=== PATIENT | female | born 1955 | race Caucasian/White ===

== ENCOUNTER → 2018-02-18 | Day surgery (SDC) | payer OTHER ==
[~2018-02-18] MED LIST: BREO INH; CRANBERRY450 M1 PO; FENTANYL CITRATE/PF 100MCG/2 ML INJ ONE; KEFLEX500 MG PO; LIDOCAINE HCL 2% LOCAL INJ 5 ML SDV VIAL INJ ONE; METOPROLOL SUCC25 MG PO; MIDAZOLAM HCL 2 MG/2 ML VIAL ONE; PANTOPRAZOLE SO40 MG PO; PAROXETINE HCL20 MG PO; PROPOFOL IV EMULSION 10 MG/ML 50 ML VIAL ONE; TYLENOL WITH C1 EACH PO; VITAMIN D31000 UNI1 PO
--- OUTSIDE RECORDS SUMMARY | 2018-02-18 07:57 | XMS REPORT | Encounter Summary ---
Author Organization Unknown Address [address] [place] [address] Phone [phone] Reason for Visit Medical Complaint Instructions 1. Allergic rhinitis rapid strep group A, throat allergies: care instructions Xyzal 5 mg tablet fluticasone 50 mcg/actuation nasal spray,suspension Discussion Note: None recorded. Plan of Care Patient Instructions Try warm salt water gargles, throat lozanges, soups ortea with honey and/or lemon juice to soothe the throat.Take ibuprofen or tylenolevery 6 hours for fever, pain and/or swelling of throat. Please seek care (PCP, Urgent Care, ER) or return to [facility] if symptoms get worse or do not resolve in 3 to 4 days or if you notice any signs of infection including fever,redness, tenderness or yellow discharge or onset of shortness of breath, lips or tounge swelling. Please read all the side effects of the medications, if you develop any side effects, immediately stop the medication and please contact your PCP/UC/ER or [facility] or call 911. Patient verbalizes understanding and agrees to the plan. Reminders Provider Appointments None recorded. Lab Rapid Strep Group a, Throat 11/15/2015 [facility] Referral None recorded. Procedures None recorded. Surgeries None recorded. Imaging None recorded. Medications Name Start Date amoxicillin 875 mg-potassium clavulanate 125 mg tablet azithromycin 500 mg tablet fluticasone 50 mcg/actuation nasal spray,suspension INHALE 2 SPRAYS INTO EACH NOSTRIL EVERY DAY levocetirizine 5 mg tablet TAKE 1 TABLET BY MOUTH EVERY DAY paroxetine 10 mg tablet Medications Administered None recorded. Vitals Height Weight BMI Blood Pressure 5 ft 5.5 in 183 lbs 30 110/70 Lab Results Date Name Result Description Value Range Status Rapid Strep Group a, Throat Result negative Swab Location Left and Right tonsillar pillars Allergies Name Reaction Severity Onset NKDA Problems Name Status Onset Date Source Streptococcal Sore Throat Active Encounter Acute Maxillary Sinusitis Active Encounter Sore Throat Symptom Active Encounter Laryngitis Active Encounter Upper Respiratory Infection Active Encounter Allergic Rhinitis Active Encounter Procedures Date Name Performed by Hysterectomy Information not available Vaccine List Vaccine Type influenza, seasonal, injectable 12/21/2014 Social History Smoking Status Never Smoker Past Encounters 11/15/2015 Allergic Rhinitis Gin Ortiz ANNE: [address] [facility], [place] [address], Ph. History of Present Illness Azbib-Rtqnnsoyyd-Vetpkmm Reported By: Patient HPI: Location: throat. Quality: sore throat, nasal/sinus congestion. Duration: 2days. Severity: mild, moderate. Onset/Timing: sudden. Context: no sick contacts, no foreign travel, non-smoker, allergies. Modifying factors: OTC medication. Associated Symptoms: no sputum production, no shortness of breath, no wheezing, no change in number of pillows needed to sleep at night, no sweats, no significant weight gain, no significant weight loss, no morning cough, no vomiting, no diarrhea, no rash, no nausea, sore throat Notes: Pt also reports scratchy throat, itchy ears and nose. Review of Systems Basic Reported By: Patient Constitutional: Constitutional: no fever Eyes: Eyes: no eye complaints Lxap-Znyr-Ashwq-Throat: Ears: no ear complaints. Nose: nose/sinus problems. Mouth/Throat: no bleeding gums, no mouth complaints, no teeth problems, sore throat Cardiovascular: Cardiovascular: no chest pain, no shortness of breath, no known heart murmur Respiratory: Respiratory: no cough, no wheezing, no shortness of breath Gastrointestinal: Gastrointestinal: no abdominal pain, no vomiting / diarrhea Genitourinary: Genitourinary: no urinary complaints, no discharge Musculoskeletal: Musculoskeletal: no muscle aches, no muscle weakness, no arthralgias/joint pain, no back pain Skin: Skin: no abnormal / changing mole, no jaundice, no rashes Neurologic: Neurologic: no loss of consciousness, no weakness, no numbness, no seizures, no dizziness, no headaches Physical Exam Adult Basic, Adult Female Complete Constitutional: General Appearance: healthy-appearing, well-nourished, well-developed. Level of Distress: NAD. Ambulation: ambulating normally Psychiatric: Mental Status: active and alert. Orientation: to time, to place, to person Eyes: Lids and Conjunctivae: non-injected, no discharge, no pallor. Pupils: PERRLA. EOM: EOMI. Lens: clear. Sclerae: non-icteric Gwe-Qywa-Hxmvc-Throat: Ears: no lesions on external ear, no outer ear tenderness, EACs clear, TMs clear. Hearing: no hearing loss. Nose: no lesions on external nose, nares patent, no septal deviation, nasal passages clear, no sinus tenderness, nasal discharge--rhinorrhea, post nasal drip; pale swollen nasal mucosa. Lips, Teeth, and Gums: no mouth or lip ulcers. Oropharynx: moist mucous membranes, no exudates, tonsils not enlarged, erythema Neck: Neck: supple. Lymph Nodes: no cervical LAD Lungs: Respiratory effort: no dyspnea, no tachypnea. Auscultation: breath sounds normal Cardiovascular: Heart Auscultation: RRR, no murmurs Neurologic: Gait and Station: normal gait Skin: Inspection and palpation: no rash
--- OUTSIDE RECORDS SUMMARY | 2018-02-18 07:57 | XMS REPORT | Encounter Summary ---
Author Organization Unknown Address [address] [place] [address] Phone [phone] Reason for Visit Medical Complaint Instructions 1. Pain in throat sore throat: care instructions levocetirizine 5 mg tablet rapid strep group A, throat Discussion Note: None recorded. Plan of Care Patient Instructions take medication as directed. follow up pcp Reminders Provider Appointments None recorded. Lab Rapid Strep Group a, Throat 03/01/2017 [facility] Referral None recorded. Procedures None recorded. Surgeries None recorded. Imaging None recorded. Medications Name Start Date Breo Ellipta 100 mcg-25 mcg/dose powder for inhalation levocetirizine 5 mg tablet Take 1 tablet every day by oral route for 30 days. metoprolol tartrate 25 mg tablet paroxetine 10 mg tablet Medications Administered None recorded. Vitals Height Weight BMI Blood Pressure 5 ft 5.5 in 190 lbs 31.1 kg/m2 120/80 mm[Hg] Lab Results Date Name Specimen Result Interpretation Description Value Range Status Address Rapid Strep Group a, Throat Result negative [facility]: [address] [place] [address] Swab Location Left and Right tonsillar pillars [facility]: [address] [place] [address] Allergies Code Code System Name Reaction Severity Status Onset NKDA Problems Name Status Onset Date Source Streptococcal Sore Throat Active Encounter Acute Maxillary Sinusitis Active Encounter Sore Throat Symptom Active Encounter Laryngitis Active Encounter Upper Respiratory Infection Active Encounter Allergic Rhinitis Active Encounter Procedures Date Name Performed by Hysterectomy Information not available Vaccine List Vaccine Type influenza, injectable, quadrivalent 10/22/2016 influenza, seasonal, injectable 12/22/2014 pneumococcal polysaccharide PPV23 11/22/2016 Social History Smoking Status Never Smoker Past Encounters 03/01/2017 Pain in Throat ZOEY Aguilar: [address] [place] [address], Ph. History of Present Illness Throat-Oral Complaint Reported By: Patient HPI: Location: throat. Quality: sore throat. Severity: mild, moderate. Duration: 1 days. Onset/Timing: gradual. Context: no foreign travel, non-smoker, sick contact. Modifying factors: OTC medication. Associated Symptoms: no fever, no headache, no body aches, no sputum production, no shortness of breath, no wheezing, no change in number of pillows needed to sleep at night, no sweats, no significant weight gain, no significant weight loss, no morning cough, no vomiting, no diarrhea, no rash, no nausea, sore throat Review of Systems:ROS as noted in the HPI Review of Systems Basic Reported By: Patient Physical Exam Adult Basic, Adult Female Complete Reported By: Patient Constitutional: General Appearance: healthy-appearing, well-nourished, well-developed. Level of Distress: NAD. Ambulation: ambulating normally Psychiatric: Mental Status: active and alert Eyes: Lids and Conjunctivae: non-injected, no discharge Qdr-Dilt-Iwdwx-Throat: Ears: no lesions on external ear, no outer ear tenderness, EACs clear, TMs clear. Hearing: no hearing loss. Nose: no lesions on external nose, nares patent, no septal deviation, nasal passages clear, no sinus tenderness, no nasal discharge. Lips, Teeth, and Gums: no mouth or lip ulcers. Oropharynx: moist mucous membranes, no erythema, no exudates, tonsils not enlarged Neck: Neck: trachea midline. Lymph Nodes: no cervical LAD Lungs: Respiratory effort: no dyspnea, no tachypnea, no use of accessory muscles, no intercostal retractions. Auscultation: breath sounds normal Cardiovascular: Heart Auscultation: RRR, no murmurs
--- OUTSIDE RECORDS SUMMARY | 2018-02-18 07:57 | XMS REPORT | Continuity of Care Document ---
Author Author Maurilio emmanuel [facility] Interface Address Unknown Phone Unavailable Problems Problem Status Onset Date Classification Date Reported Comments Source Pain in throat 03/01/2017 Diagnosis 03/01/2017 [facility] Allergic rhinitis 11/15/2015 Diagnosis 11/15/2015 [facility] Streptococcal Sore Throat Problem 03/01/2017 [facility] Acute Maxillary Sinusitis Problem 03/01/2017 [facility] Sore Throat Symptom Problem 03/01/2017 [facility] Laryngitis Problem 03/01/2017 [facility] Upper Respiratory Infection Problem 03/01/2017 [facility] Allergic Rhinitis Problem 03/01/2017 [facility] Medications Medication Details Route Status Patient Instructions Ordering Provider Order Date Source fluticasone furoate 0.1 MG/ACTUAT / vilanterol 0.025 MG/ACTUAT Dry Powder Inhaler Breo Ellipta 100 mcg-25 mcg/dose powder for inhalation Active [facility] levocetirizine dihydrochloride 5 MG Oral Tablet levocetirizine 5 mg tablet Take 1 tablet every day by oral route for 30 days. Active [facility] Metoprolol Tartrate 25 MG Oral Tablet metoprolol tartrate 25 mg tablet Active [facility] Paroxetine Hydrochloride 10 MG Oral Tablet paroxetine 10 mg tablet Active [facility] Amoxicillin 875 MG / Clavulanate 125 MG Oral Tablet amoxicillin 875 mg-potassium clavulanate 125 mg tablet Active [facility] Azithromycin 500 MG Oral Tablet azithromycin 500 mg tablet Active [facility] Fluticasone propionate 0.05 MG/ACTUAT Metered Dose Nasal [place] fluticasone 50 mcg/actuation nasal spray,suspension INHALE 2 SPRAYS INTO EACH NOSTRIL EVERY DAY Active [facility] Allergies, Adverse Reactions, Alerts Substance Category Reaction Severity Reaction type Status Date Reported Comments Source Immunizations Immunization Date Given Site Status Last Updated Comments Source pneumococcal polysaccharide PPV23 11/22/2016 completed [facility] influenza, injectable, quadrivalent 10/22/2016 completed [facility] influenza, seasonal, injectable 12/22/2014 completed [facility] Results Order Name Results Value Reference Range Date Interpretation Comments Source RESULT negative 03/01/2017 [facility] SWAB LOCATION Left and Right tonsillar pillars 03/01/2017 [facility] RESULT negative 11/15/2015 [facility] SWAB LOCATION Left and Right tonsillar pillars 11/15/2015 [facility] Vital Signs Vital Sign Value Date Comments Source Diastolic (mm Hg) 80 03/01/2017 [facility] Height 65.5 03/01/2017 [facility] Systolic (mm Hg) 120 03/01/2017 [facility] Weight 190 03/01/2017 [facility] Diastolic (mm Hg) 70 11/15/2015 [facility] Height 65.5 11/15/2015 [facility] Systolic (mm Hg) 110 11/15/2015 [facility] Weight 183 11/15/2015 [facility] Encounters Location Location Details Encounter Type Encounter Number Reason For Visit Attending Provider ADM Date DC Date Status Source [place] - [id number] HEATHER WadeP: [address] [place] [address], Ph. [id number] Gin Ortiz 11/15/2015 [facility] [place] [id number] Srivastava, [employer] SPECIALIST-C: [address] [place] [address], Ph. [id number] Lb Srivastava 03/01/2017 [facility] Procedures Procedure Code Date Perfomer Comments Source Hysterectomy [facility]
[2018-02-18 12:42] VITALS: BP 148/84
--- NOTE | 2018-02-18 15:06 | Operative Report ---
DATE OF PROCEDURE: February 18, 2018 REFERRING PHYSICIAN: Dr. Alex Anaya PROCEDURES PERFORMED 1. Esophagogastroduodenoscopy and biopsy. 2. Colonoscopy with polypectomy. INDICATIONS FOR EGD: History of heartburn and epigastric pain. INDICATIONS FOR COLONOSCOPY: Surveillance colonoscopy and personal history of colon polyps. MEDICATION: Patient was done under MAC. Please see anesthesiologist's note. PROCEDURE: With the patient in the left lateral decubitus position, the flexible fiberoptic Olympus gastroscope was introduced into the esophagus under direct visualization without any difficulty. There was some patchy erythema noted in the distal esophagus. A minute tongue of velvety red mucosa was noted to extend proximally from the GE junction. That was biopsied to rule out Patton's. The scope was then advanced with ease into the stomach, and mucosa overlying the antrum and the body revealed some patchy intense erythema and moderate edema, and biopsies were obtained and sent to stain for H. pylori. Two ulcers were noted in the antrum with the largest approximately 6 mm in diameter with heaped up margins without active bleeding or stigmata of recent hemorrhage. Biopsies were obtained. The scope was then advanced with ease all the way to the 2nd portion of the duodenum. The scope was then withdrawn slowly. Mucosa overlying the proximal 2nd portion and the duodenal bulb appeared to be within normal limits. The scope was then withdrawn back into the stomach and retroflexed. Mucosa overlying the fundus and the cardia appeared to be within normal limits. The scope was then straightened out. It was subsequently withdrawn. Patient tolerated the procedure well. IMPRESSION 1. Distal esophagitis, mild. 2. Rule out Patton's esophagus. 3. Gastric ulcers, antrum, up to 6 mm in size with heaped up margins. Biopsies obtained. PLAN: Follow up histology. Initiate Protonix 40 mg 1 p.o. q.a.m. a.c. Patient was then turned around. After adequate lubrication of the anal canal, a flexible fiberoptic Olympus colonoscope was inserted into the rectum with ease and advanced all the way to the cecum. It was then withdrawn slowly. The mucosa overlying the cecum appeared to be within normal limits. There was a prominent fold noted in the approximately the midaspect of the ascending colon that was hot biopsied. The rest of the ascending appeared to be within normal limits. A minute polyp was hot biopsied from the transverse colon. The descending and the sigmoid appeared to be within normal limits. An approximately 2 cm sessile mass was noted in the distal rectum and that was partially resected per piecemeal electrocautery. The scope was retroflexed into the distal rectum and small internal hemorrhoids were noted, none of which was actively bleeding. The scope was then straightened out. It was subsequently withdrawn. Patient tolerated the procedure well. IMPRESSION 1. Prominent fold in the mid-ascending colon, hot biopsied. 2. Minute polyp, transverse colon, hot biopsied. 3. Rectal polypoid mass approximately 2 cm in size partially resected per piecemeal electrocautery. 4. Internal hemorrhoids, none actively bleeding. PLAN: Follow up histology. Initiate high-fiber and low-fat diet. Initiate high-fiber supplement. Will refer to Dr. Martinez Olvera for transanal excision of residual mass. Job#: [id number] RI cc:MD MARTINEZ HERNANDEZ MD
== END | disposition home or self-care (01) ==
LOC: ENDO 07:54
PROVIDERS: ATTEND Internal Medicine Gastroenterology
DX: K29.50 Unspecified chronic gastritis without bleeding (principal); D12.8 Benign neoplasm of rectum; K63.5 Polyp of colon; K25.9 Gastric ulcer, unspecified as acute or chronic, without hemorrhage or perforation; K20.9 Esophagitis, unspecified; K22.8 Other specified diseases of esophagus; K63.89 Other specified diseases of intestine; K64.8 Other hemorrhoids; I45.10 Unspecified right bundle-branch block; I10 Essential (primary) hypertension; Z01.810 Encounter for preprocedural cardiovascular examination; Z68.33 Body mass index [BMI] 33.0-33.9, adult
CPT/HCPCS: 43239; 45384; 45388; 93005; J2001; J2250; 45385

== ENCOUNTER 2018-03-20 05:24 | Observation (INO) | payer OTHER ==
[2018-03-11 11:00] LABS: BASOPHILS # (AUTO) 0.1 (0.0-0.1); BASOPHILS % 0.8 % (0.0-1.0); EOSINOPHILS # (AUTO) 0.2 (0.0-0.4); HEMATOCRIT 39.2 % (34.2-44.1); HEMOGLOBIN 12.6 g/dL (12.0-16.0); LYMPHOCYTES # (AUTO) 1.7 (1.0-3.2); LYMPHOCYTES % 24.5 % (18.0-39.1); MEAN CORPUSCULAR HEMOGLOBIN 29.3 pg (28-32); MEAN CORPUSCULAR HGB CONC 32.1 g/dL (31-35); MEAN CORPUSCULAR VOLUME 91.2 fL (81-99); MONOCYTES # (AUTO) 0.6 (0.2-0.8); MONOCYTES % 7.9 % (4.4-11.3); NEUTROPHILS # (AUTO) 4.5 (2.1-6.9); NEUTROPHILS % 63.5 % (38.7-80.0); PLATELET COUNT 232 x10e3/uL (140-360); RED CELL DISTRIBUTION WIDTH 13.5 % (11.7-14.4)
--- NOTE | 2018-03-11 11:07 | Diagnostic Imaging Report ---
PROCEDURE: X-RAY CHEST, TWO VIEWS COMPARISON: None. INDICATIONS: PRE OPERATIVE FOR VILLOUS TUMOR RECUM FINDINGS: LUNGS: No consolidations or edema. PLEURA: No effusions or pneumothorax. HEART & MEDIASTINUM: The heart is within normal size-limits. BONES & SOFT TISSUES: No acute findings. CONCLUSION: No acute thoracic abnormality. Jake Schrader D.O. Dictated by: Jake Schrader D.O. on 03/11/2018 at 11:17 Electronically approved by: Jake Schrader D.O. on 03/11/2018 at 11:17
[2018-03-11 11:23] LABS: ANION GAP 12.8 mmol/L (8-16); BLOOD UREA NITROGEN 18 mg/dL (7-26); BUN/CREATININE RATIO 22 (6-25); CALCIUM 8.8 mg/dL (8.4-10.2); CARBON DIOXIDE 28 mmol/L (22-29); CHLORIDE 104 mmol/L (98-107); CREATININE, SERUM 0.81 mg/dL (0.57-1.11); EST GLOMERULAR FILTRATION RATE > 60 ML/MIN (60-); GLUCOSE 92 mg/dL (74-118); POTASSIUM 3.8 mmol/L (3.5-5.1); SODIUM 141 mmol/L (136-145)
[~2018-03-20] VITALS: Ht 165.1 cm; Wt 97.1 kg
[~2018-03-20 05:24] MED LIST changes: -FENTANYL CITRATE/PF 100MCG/2 ML INJ ONE; -KEFLEX500 MG PO; -LIDOCAINE HCL 2% LOCAL INJ 5 ML SDV VIAL INJ ONE; -MIDAZOLAM HCL 2 MG/2 ML VIAL ONE; -PROPOFOL IV EMULSION 10 MG/ML 50 ML VIAL ONE; -TYLENOL WITH C1 EACH PO
--- OUTSIDE RECORDS SUMMARY | 2018-03-20 05:27 | XMS REPORT | Encounter Summary ---
Author Organization Unknown Address [address] [place] [address] Phone [phone] Reason for Visit Medical Complaint Instructions 1. Acute pharyngitis sore throat: care instructions Lidocaine Viscous 2 % mucosal solution cephalexin 500 mg tablet rapid strep group A, throat culture, respiratory 2. Essential hypertension high blood pressure: care instructions 3. Irregular heart beat 4. Body mass index 30+ - obesity body mass index: care instructions 5. Immunization advised Discussion Note Pt is in NAD; Verbalizes understanding of all instructions with no questions at this time. Plan of Care Patient Instructions Stop xyzal. Take fluticasone as needed for post nasal drip. [place] one spray in each nostril twice a day. Take a warm, steamy shower, blow your nose thereafter, and spray in each nostril. Tilt your head up for about 10 seconds and breath through your mouth. Do not sniff or snort the medication in or else the medication will go to your throat and not be absorbed appropriately. Take medications as prescr ibed and follow up with a PCP within 2-3 if symptoms worsen as discussed. Gargle and spit viscous lidocaine as needed for sore throat as directed. Take tylenol over the counter for pain/headache/fever as per pacakge insert. Proper hydration and rest. Take antibiotics with food and recommend start a probiotic to avoid GI discomfort. Do not share any utensils/cups, no kissing and change toothbrush aft er 24-48 hrs of antibiotic use. Take medications as prescribed. Follow up with your PCP within 2-3 days if symptoms worsen as discussed. Recommend monitor BP at home and document, bring BP log to PCP for review. Recommend follow a low sodium/fat/carb diet and exercise 30-45 mins/d 3-4 days a week once symptoms resolve. In case of an emergency call 911 or go to nearest ER. Reminders Provider Appointments None recorded. Lab Rapid Strep Group a, Throat 03/10/2018 [facility] Culture, Respiratory 03/10/2018 [facility] Referral None recorded. Procedures None recorded. Surgeries None recorded. Imaging None recorded. Medications Name Start Date Breo Ellipta 100 mcg-25 mcg/dose powder for inhalation INHALE 1 PUFF BY MOUTH ONCE A DAY cephalexin 500 mg tablet Take 1 tablet every 12 hours by oral route as directed for 10 days. Fluzone Quad (PF) 60 mcg(15 mcgx4)/0.5 mL intramuscular syringe TO BE ADMINISTERED BY PHARMACIST FOR IMMUNIZATION Lidocaine Viscous 2 % mucosal solution Take 15 mL every 3 hours by oral route as needed. metoprolol tartrate 25 mg tablet 03/10/2018 pantoprazole 40 mg tablet,delayed release paroxetine 20 mg tablet Medications Administered None recorded. Vitals Height Weight BMI Blood Pressure 5 ft 5.5 in 200 lbs 32.8 kg/m2 (1) 122/80 mm[Hg] (2) 122/80 mm[Hg] Lab Results Date Name Specimen Result Interpretation Description Value Range Status Address Rapid Strep Group a, Throat Result negative [facility]: [address] [place] [address] Swab Location Left and Right tonsillar pillars [facility]: [address] [place] [address] Allergies Code Code System Name Reaction Severity Status Onset NKDA Problems Name Status Onset Date Source Body Mass Index 30+ - Obesity Active 03/10/2018 Anxiety Active 03/10/2018 Essential Hypertension Active 03/10/2018 Irregular Heart Beat Active 03/10/2018 Acute Pharyngitis Active 03/10/2018 Disorder of Respiratory System Active 03/10/2018 Gastric Ulcer Active 03/10/2018 Procedures Date Name Performed by Hysterectomy Information not available Vaccine List Vaccine Type influenza, injectable, quadrivalent 10/22/2016 influenza, seasonal, injectable 12/22/2014 influenza, unspecified formulation 11/11/2017 pneumococcal polysaccharide PPV23 11/22/2016 Social History Smoking Status Never Smoker Past Encounters 03/10/2018 Acute Pharyngitis; Essential Hypertension; Irregular Heart Beat; Body Mass Index 30+ - Obesity; Immunization Advised ANNE Baldwin-C: [address] [facility], [place] [address], Ph. History of Present Illness Throat-Oral Complaint Reported By: Patient HPI: Location: throat. Quality: sore throat. Severity: moderate, pain level 5/10. Duration: 1 days. Onset/Timing: sudden. Context: no sick contacts, no foreign travel, non-smoker. Modifying factors: OTC medication. Associated Symptoms: no [...] Complete Reported By: Patient Constitutional: General Appearance: obese. Level of Distress: NAD. Ambulation: ambulating normally Psychiatric: Mental Status: active and alert. Orientation: to time, to place, to person Ozt-Xwko-Tgrud-Throat: Ears: no lesions on external ear, no outer ear tenderness, EACs clear, TMs clear. Hearing: no hearing loss. Nose: no lesions on external nose, nares patent, no septal deviation, nasal passages clear, no sinus tenderness, post nasal drip. Lips, Teeth, and Gums: no mouth or lip ulcers, no bleeding gums, normal dentition. Oropharynx: moist mucous membranes, tonsils not enlarged, erythema, exudates Neck: Lymph Nodes: no cervical LAD Lungs: Respiratory effort: no dyspnea, no tachypnea, no use of accessory muscles, no intercostal retractions. Auscultation: breath sounds normal Cardiovascular: Heart Auscultation: RRR, no murmurs Neurologic: Gait and Station: normal gait, normal station
--- OUTSIDE RECORDS SUMMARY | 2018-03-20 05:27 | XMS REPORT | Continuity of Care Document ---
Author Author [facility] Interface Address Unknown Phone Unavailable Problems Problem Status Onset Date Classification Date Reported Comments Source Immunization advised 03/10/2018 Diagnosis 03/10/2018 [facility] Acute pharyngitis 03/10/2018 Diagnosis 03/10/2018 [facility] Body mass index 30+ - obesity 03/10/2018 Diagnosis 03/10/2018 [facility] Irregular heart beat 03/10/2018 Diagnosis 03/10/2018 [facility] Essential hypertension 03/10/2018 Diagnosis 03/10/2018 [facility] Body Mass Index 30+ - Obesity 03/10/2018 Problem 03/10/2018 [facility] Anxiety 03/10/2018 Problem 03/10/2018 [facility] Essential Hypertension 03/10/2018 Problem 03/10/2018 [facility] Irregular Heart Beat 03/10/2018 Problem 03/10/2018 [facility] Acute Pharyngitis 03/10/2018 Problem 03/10/2018 [facility] Disorder of Respiratory System 03/10/2018 Problem 03/10/2018 [facility] Gastric Ulcer 03/10/2018 Problem 03/10/2018 [facility] Pain in throat 03/01/2017 Diagnosis 03/01/2017 [facility] Allergic rhinitis 11/15/2015 Diagnosis 11/15/2015 [facility] Streptococcal Sore Throat Problem 03/01/2017 [facility] Acute Maxillary Sinusitis Problem 03/01/2017 [facility] Sore Throat Symptom Problem 03/01/2017 [facility] Laryngitis Problem 03/01/2017 [facility] Upper Respiratory Infection Problem 03/01/2017 [facility] Allergic Rhinitis Problem 03/01/2017 [facility] Medications Medication Details Route Status Patient Instructions Ordering Provider Order Date Source Metoprolol Tartrate 25 MG Oral Tablet metoprolol tartrate 25 mg tablet Active 03/10/2018 [facility] fluticasone furoate 0.1 MG/ACTUAT / vilanterol 0.025 MG/ACTUAT Dry Powder Inhaler Breo Ellipta 100 mcg-25 mcg/dose powder for inhalation INHALE 1 PUFF BY MOUTH ONCE A DAY Active [facility] levocetirizine dihydrochloride 5 MG Oral [...] Fluticasone propionate 0.05 MG/ACTUAT Metered Dose Nasal [place] fluticasone 50 mcg/actuation nasal spray,suspension INHALE 2 SPRAYS INTO EACH NOSTRIL EVERY DAY Active [facility] Cephalexin 500 MG Oral Tablet cephalexin 500 mg tablet Take 1 tablet every 12 hours by oral route as directed for 10 days. Active [facility] 0.5 ML influenza A virus A/ (H1N1) antigen 0.03 MG/ML / influenza A virus A/[facility]/[id number] (H3N2) antigen 0.03 MG/ML / influenza B virus B/ antigen 0.03 MG/ML / influenza B virus B/[place] [id number]/2012 antigen 0.03 MG/ML Prefilled Syringe [Fluzone Quadrivalent 8073-8565] Fluzone Quad 2017-(PF) 60 mcg(15 mcgx4)/0.5 mL intramuscular syringe TO BE ADMINISTERED BY PHARMACIST FOR IMMUNIZATION Active [facility] Lidocaine Hydrochloride 20 MG/ML Mucous Membrane Topical Solution Lidocaine Viscous 2 % mucosal solution Take 15 mL every 3 hours by oral route as needed. Active [facility] pantoprazole 40 MG Delayed Release Oral Tablet pantoprazole 40 mg tablet,delayed release Active [facility] Paroxetine Hydrochloride 20 MG Oral Tablet paroxetine 20 mg tablet Active [facility] Allergies, Adverse Reactions, Alerts Substance Category Reaction Severity Reaction type Status Date Reported Comments Source Immunizations Immunization Date Given Site Status Last Updated Comments Source influenza, unspecified formulation 11/11/2017 completed [facility] pneumococcal polysaccharide PPV23 11/22/2016 completed [facility] influenza, injectable, quadrivalent 10/22/2016 completed [facility] influenza, seasonal, injectable 12/22/2014 completed [facility] Results Order Name Results Value Reference Range Date Interpretation Comments Source RESULT negative 03/10/2018 [facility] SWAB LOCATION Left and Right tonsillar pillars 03/10/2018 [facility] RESULT negative 03/01/2017 [facility] SWAB LOCATION Left and Right tonsillar pillars 03/01/2017 [facility] RESULT negative 11/15/2015 [facility] SWAB LOCATION Left and Right tonsillar pillars 11/15/2015 [facility] Vital Signs Vital Sign Value Date Comments Source Diastolic (mm Hg) 80 03/10/2018 [facility] Height 65.5 03/10/2018 [facility] Systolic (mm Hg) 122 03/10/2018 [facility] Weight 200 03/10/2018 [facility] Diastolic (mm Hg) 80 03/01/2017 [facility] Height 65.5 03/01/2017 [facility] Systolic (mm Hg) 120 03/01/2017 [facility] Weight 190 03/01/2017 [facility] Diastolic (mm Hg) 70 11/15/2015 [facility] Height 65.5 11/15/2015 [facility] Systolic (mm Hg) 110 11/15/2015 [facility] Weight 183 11/15/2015 [facility] Encounters Location Location Details Encounter Type Encounter Number Reason For Visit Attending Provider ADM Date DC Date Status Source [place] - [facility] - [id number] Gin Angel, SOLAR LAB TECHNICIAN: [address] [facility], [place] [address], Ph. [phone] [id number] Gin Angel 11/15/2015 [facility] [place] [facility] - [id number] Lb Srivastava, SOLAR LAB TECHNICIAN-C: [address], [place] [address], Ph. [id number] Lb Srivastava 03/01/2017 [facility] [place] [facility] - [id number] Trista Augustin, SOLAR LAB TECHNICIAN-C: [address], [place] [address], Ph. [id number] Trista Lakeroy 03/10/2018 [facility] Procedures Procedure Code Date Perfomer Comments Source Hysterectomy [facility]
--- OUTSIDE RECORDS SUMMARY | 2018-03-20 05:28 | XMS REPORT ---
[facility] Address Unknown Phone Unavailable Care Team Providers Care Automatic Profile Sander Operator Name Role Phone Alma Delia EDWARDS Unavailable Unavailable Problems This patient has no known problems. Allergies, Adverse Reactions, Alerts This patient has no known allergies or adverse reactions. Medications This patient has no known medications. Results Test Description Test Time Test Comments Text Results Atomic Results Result Comments CHEST 2 VIEWS 2018-03-11 11:17:00 [place] [address] Patient Name: ABHIJIT CASTAÑEDA MR #: [id number] : 1955 Age/Sex: 62/F Req #: [id number] [facility] Physician: Ordered by: AJ EDWARDS MD Report #: [id number] Location: OR Room/Bed: Procedure: [id number] DX/CHEST 2 VIEWS Exam Date: 03/11/18 Exam Time: 1020 REPORT STATUS: Signed PROCEDURE: X-RAY CHEST, TWO VIEWS COMPARISON: None. I NDICATIONS: PRE OPERATIVE FOR VILLOUS TUMOR RECUM FINDINGS: LUNGS: No consolidations or edema. PLEURA: No effusions or pneumothorax. HEART MEDIASTINUM: The heart is within normal size- limits. BONES SOFT TISSUES: No acute findings. CONCLUSION: No acute thoracic abnormality. Pooja Schrader D.O. Dictated by: Pooja Schrader D.O. on 03/11/2018 at 11:17 Electronically approved by: Pooja Schrader D.O. on 03/11/2018 at 11:17 Dictated By: POOJA SCHRADER DO 1117 Transcribed By: KONRAD on 03/11/18 1117 COPY TO: AJ EDWARDS MD
[2018-03-20] MEDS ORDERED: LIDOCAINE HCL 1% 30ML-PF VIAL ONE (06:53)
[2018-03-20] MEDS ORDERED: LIDOCAINE JELLY 2% 10ML URO-JET ONE (07:02)
[2018-03-20] MEDS ORDERED: GELATIN SPONGE 12-7MM ONE (07:03)
[2018-03-20] MEDS ORDERED: NALOXONE HCL INJ 0.4 MG/ML AMP IV PRN (09:45)
[2018-03-20] MEDS ORDERED: ONDANSETRON HCL INJ 2 MG/ML VIAL IV PRN (09:45)
[2018-03-20] MEDS ORDERED: ACETAMINOPHEN 1000 MG/100 ML IV PRN (09:45)
[2018-03-20] MEDS ORDERED: KETOROLAC TROMETHAMINE 30 MG/ML VIAL IV PRN (09:45)
[2018-03-20] MEDS ORDERED: HYDROMORPHONE 0.2MG/ML-SOD CHL 30ML PCA SYRINGE IV ONE (09:59)
--- NOTE | 2018-03-20 10:28 | Operative Report ---
DATE OF PROCEDURE: March 20, 2018 PREOPERATIVE DIAGNOSIS: Large villous tumor of the rectum. POSTOPERATIVE DIAGNOSIS: Large villous tumor of the rectum. OPERATION PERFORMED: Transanal full-thickness resection of the rectal tumor. MANAGER STRATEGIC: YOANDY Carmona. ANESTHESIA: General. COMPLICATIONS: None. ESTIMATED BLOOD LOSS: 25 mL. DESCRIPTION OF PROCEDURE: With the patient lying in bed in the lithotomy position under good general anesthesia, the perineum was prepped with Betadine solution and draped in the usual manner. A complete anorectal block was then performed with 0.25% Marcaine and 1% lidocaine with epinephrine mixed in equal parts. Examination at this point revealed that the patient had villous tumor that extended right up to the anal verge and was roughly about 3 to 4 cm and laterally probably about 5 to 6 cm in width. This was close to the anorectal verge, and we would have to actually removing the hemorrhoids that were in the area between 4 o'clock and 8 o'clock in order to be able to resect the tumor. An apical stitch was then placed above the tumor in the rectum. Similarly, another 0 chromic suture was placed on both sides to luana the lateral borders of the lesion. The external hemorrhoidal component was then sharply removed and we then cleared the rectal sphincter. Then proceeded to do a full-thickness resection upwardly into the rectum all the way around the lesion until it was totally and completely removed. After this was done, the rectum and anal mucosa were then oversewn with the previously placed 0 chromic sutures bringing the rectal margin all the way down to the anorectal verge with the running 0 chromic suture. After this was done, the skin and mucosa were then reapproximated with interrupted sutures of 3-0 chromic. This gave us a satisfactory complete resection, which extended from about the 4 o'clock to about the 8 o'clock position. There was good hemostasis. A Gelfoam pack impregnated with Xylocaine was placed. A dressing was applied. The sponge, lap and needle count was correct. The patient tolerated the procedure well, and returned to the recovery room in stable condition. Job#: [id number] MD
[2018-03-20] MEDS ORDERED: PANTOPRAZOLE 40 MG 10ML VIAL IV SCH ×2 (10:30→11:32)
[2018-03-20] MEDS: HYDROMORPHONE 0.2MG/ML-SOD CHL 30ML PCA SYRINGE IV PRN (10:43)
[2018-03-20] MEDS ORDERED: PANTOPRAZOLE 40 MG 10ML VIAL ONE (11:13)
[2018-03-20 13:53] VITALS: BP 118/64
--- NOTE | 2018-03-20 14:00 | NUR ---
recvd pt from pacu, alert and oriented. at bedside. pt reports 0/10 pain, had local plus on core drilling supervisor pump. dressing cdi to rectum at this time.
[2018-03-20] MEDS: CEFOXITIN 1GM/ NS 50ML 50 ML IV SCH ×2 (14:34→20:27)
[2018-03-20] MEDS ORDERED: DEXAMETHASONE SOD PHOS INJ 4 MG/ML VIAL ONE (15:10)
[2018-03-20] MEDS ORDERED: LABETALOL HCL 5 MG/ML 20ML VIAL ONE (15:10)
[2018-03-20] MEDS ORDERED: ONDANSETRON HCL INJ 2 MG/ML VIAL ONE (15:10)
[2018-03-20] MEDS ORDERED: KETOROLAC TROMETHAMINE 30 MG/ML VIAL ONE (15:10)
[2018-03-20] MEDS ORDERED: SEVOFLURANE INHAL SOLN 250 ML PEN BTL ONE (15:10)
[2018-03-20] MEDS ORDERED: PROPOFOL IV EMULSION 10 MG/ML 20 ML VIAL ONE (15:10)
[2018-03-20] MEDS ORDERED: ROCURONIUM BROMIDE 10 MG/ML 5ML VIAL ONE (15:10)
[2018-03-20] MEDS ORDERED: LIDOCAINE HCL 2% LOCAL INJ 5 ML SDV VIAL INJ ONE (15:10)
[2018-03-20] MEDS ORDERED: PHENYLEPHRINE HCL 1% 10 MG/ML VIAL ONE (15:10)
[2018-03-20] MEDS ORDERED: NEOSTIGMINE 5 MG/5ML SYR ONE (15:10)
[2018-03-20] MEDS ORDERED: GLYCOPYRROLATE INJ 1MG/ 5 ML SYR ONE (15:10)
[2018-03-20] MEDS ORDERED: CEFOXITIN SOD 1 GM VIAL ONE (15:10)
--- NOTE | 2018-03-20 15:39 | NUR ---
pt amb well and urinating. steady on feet. pain 0/10 at this time.
[2018-03-20 15:40] VITALS: BP 118/64
[2018-03-20] MEDS ORDERED: MIDAZOLAM HCL 2 MG/2 ML VIAL ONE (15:52)
[2018-03-20] MEDS ORDERED: FENTANYL CITRATE/PF 100MCG/2 ML INJ ONE (15:52)
[2018-03-20 17:05] VITALS: BP 113/57
--- NOTE | 2018-03-20 19:10 | NUR ---
REPORT TAKEN FROM MORNING KORIN SORIANO.PT IS LYEING ON THE BED.NO PAIN VOICED.AAOX4.PROFESSIONAL SECURITY OFFICER PUMP DILAUDID RUNNING.
[2018-03-20 20:00] VITALS: BP 100/51
[2018-03-20 20:10] VITALS: BP 100/51
--- NOTE | 2018-03-20 21:00 | NUR ---
PT STATED THAT PT DID NOT VOID AFTER THE SURGERY.ASSISTED THE PT TO AMBULATES TO BATH ROOM TO VOID.DOES NOT VOID.ASSESSMENT DONE.NO RESP.DISTRESS.BED LOCKED AND IN LOWEST POSITION.PHONE AND CALL LIGHT WITHIN REACH.INSTRUCTED TO CALL FOR ASSISTANCE NEEDED.
--- NOTE | 2018-03-20 23:00 | NUR ---
INSERTED JOHN CATHETER 16 F IN A ASEPTIC TECHNIQUE.400 CC URINE DRAINED.PT TOLERATED THE PROCEDURE.
[2018-03-21] VITALS (7 sets, daily range): BP systolic 115–140; BP diastolic 56–65
--- NOTE | 2018-03-21 03:00 | NUR ---
PT IS SLEEPING IN THE BED.JOHN IS DRAINING WELL.
[2018-03-21 04:58] LABS: BASOPHILS % 0.1 % (0.0-1.0); HEMATOCRIT 40.2 % (34.2-44.1); HEMOGLOBIN 12.9 g/dL (12.0-16.0); LYMPHOCYTES # (AUTO) 0.6 (1.0-3.2); LYMPHOCYTES % 4.2 % (18.0-39.1); MEAN CORPUSCULAR HEMOGLOBIN 28.9 pg (28-32); MEAN CORPUSCULAR HGB CONC 32.1 g/dL (31-35); MEAN CORPUSCULAR VOLUME 89.9 fL (81-99); MONOCYTES # (AUTO) 0.8 (0.2-0.8); MONOCYTES % 5.2 % (4.4-11.3); NEUTROPHILS # (AUTO) 13.4 (2.1-6.9); PLATELET COUNT 227 x10e3/uL (140-360); RED BLOOD COUNT 4.47 x10e6/uL (3.6-5.1); RED CELL DISTRIBUTION WIDTH 13.2 % (11.7-14.4)
[2018-03-21 05:14] LABS: ANION GAP 15.9 mmol/L (8-16); BLOOD UREA NITROGEN 16 mg/dL (7-26); BUN/CREATININE RATIO 20 (6-25); CALCIUM 9.3 mg/dL (8.4-10.2); CARBON DIOXIDE 24 mmol/L (22-29); CHLORIDE 97 mmol/L (98-107); CREATININE, SERUM 0.81 mg/dL (0.57-1.11); EST GLOMERULAR FILTRATION RATE > 60 ML/MIN (60-); GLUCOSE 116 mg/dL (74-118); POTASSIUM 4.9 mmol/L (3.5-5.1); SODIUM 132 mmol/L (136-145)
--- NOTE | 2018-03-21 07:00 | NUR ---
Report given to the oncoming RN.walking rounds done.stable condition.
[2018-03-21] MEDS: PANTOPRAZOLE 40 MG 10ML VIAL IV SCH (08:03)
[2018-03-21] MEDS: PAROXETINE HCL 20 MG TAB PO SCH (08:03)
[2018-03-21] MEDS: METOPROLOL SUCCINATE 25 MG TAB XL PO SCH (09:00)
[2018-03-21] MEDS: HYDROMORPHONE 0.2MG/ML-SOD CHL 30ML PCA SYRINGE IV PRN (11:10)
--- NOTE | 2018-03-21 15:51 | NUR ---
ALVARO DC PER MD EDWARDS ORDERS. PT MUST VOID WITHIN [address] JOHN BACK IN GIVEN IF NEEDED. INSTRUCTED TO CALL WHEN VOIDING SITZ BATH IN ROOM PT WILL START FIRST SITZ BATH AFTER DINNER.
[2018-03-21] MEDS ORDERED: HYDROMORPHONE 2MG/ML 2 MG/ML ML IV PRN (16:00)
--- NOTE | 2018-03-21 16:00 | NUR ---
EMPLOYEE RELATIONS MANAGER PUMP DC. WASTED SYRINGE WITH KORIN MOLINA WITNESS
--- NOTE | 2018-03-21 18:00 | NUR ---
pt voided after smith removal
[2018-03-21] MEDS: HYDROCODONE/APAP 7.5MG-325MG 1 EA TAB PO PRN ×2 (18:39→23:08)
[2018-03-21] MEDS: TRIAMCINOLONE ACET 0.1% CREAM 15 GM TUBE TOP SCH (18:42)
--- NOTE | 2018-03-21 19:00 | NUR ---
REPORT TAKEN FROM MORNING RN.WALKING ROUNDS DONE.LYEING QUIETLY IN THE BED.NO PAIN VOICED.
[2018-03-22] VITALS: BP 140/65
--- NOTE | 2018-03-22 03:00 | NUR ---
WARM SITZ BATH GIVEN.TOLERATED WELL.STABLE CONDITION.
[2018-03-22 04:00] VITALS: BP 150/66
[2018-03-22] MEDS: HYDROCODONE/APAP 7.5MG-325MG 1 EA TAB PO PRN ×3 (05:37→14:41)
--- NOTE | 2018-03-22 07:01 | NUR ---
REPORT GIVEN TO THE ONCOMING RN.WALKING ROUNDS DONE.STABLE CONDITION.
--- NOTE | 2018-03-22 07:30 | NUR ---
Rcvd patient in report this am. Patient is asleep in bed at this time. No s/s of distress noted
[2018-03-22 08:28] VITALS: BP 157/79
[2018-03-22] MEDS: METOPROLOL SUCCINATE 25 MG TAB XL PO SCH (08:37)
[2018-03-22] MEDS: PAROXETINE HCL 20 MG TAB PO SCH (08:37)
[2018-03-22] MEDS: PANTOPRAZOLE 40 MG 10ML VIAL IV SCH (08:47)
[2018-03-22] MEDS ORDERED: PANTOPRAZOLE SOD 40 MG TABEC PO SCH (10:00)
[2018-03-22] MEDS: TRIAMCINOLONE ACET 0.1% CREAM 15 GM TUBE TOP SCH ×2 (10:03→14:41)
[2018-03-22 11:32] VITALS: BP 151/79
[2018-03-22 12:18] VITALS: BP 116/66
--- NOTE | 2018-03-22 14:41 | NUR ---
Sitz bath performed at this time. Patient tolerating it well.
[2018-03-22 16:22] VITALS: BP 102/52
[2018-03-22] MEDS ORDERED: TYLENOL WITH C1 EACH PO (16:51)
[2018-03-22] MEDS ORDERED: KEFLEX500 MG PO (16:52)
--- NOTE | 2018-03-22 17:13 | NUR ---
Patient discharged from facility to home. Patient assisted out via staff. Reviewed all discharge paperwork, follow up appts, and RX's given.
== END 2018-03-22 17:13 | disposition home or self-care (01) ==
LOC: OR 05:24 → PACU V 09:38 → MED/SURG 13:44
PROVIDERS: ADMIT Surgery; ATTEND Surgery
DX: D12.8 Benign neoplasm of rectum (principal); I25.10 Atherosclerotic heart disease of native coronary artery without angina pectoris; I10 Essential (primary) hypertension
CPT/HCPCS: 36415 ×2; 45171; 71046; 80048 ×2; 85025 ×2; 88305; 93005; G0378 ×3; J0694; J1100; J1885; J2001 ×2; J2250; J2370; J2405; J2704; J3490 ×2; S0164; 88307

== ENCOUNTER → 2018-05-26 | Day surgery (SDC) | payer OTHER ==
[2018-05-25 14:50] LABS: BASOPHILS # (AUTO) 0.1 (0.0-0.1); BASOPHILS % 0.8 % (0.0-1.0); EOSINOPHILS # (AUTO) 0.2 (0.0-0.4); EOSINOPHILS % 2.6 % (0.0-6.0); HEMATOCRIT 38.7 % (34.2-44.1); HEMOGLOBIN 12.4 g/dL (12.0-16.0); LYMPHOCYTES # (AUTO) 1.7 (1.0-3.2); LYMPHOCYTES % 27.9 % (18.0-39.1); MEAN CORPUSCULAR HEMOGLOBIN 29.2 pg (28-32); MEAN CORPUSCULAR VOLUME 91.1 fL (81-99); MONOCYTES # (AUTO) 0.6 (0.2-0.8); MONOCYTES % 10.3 % (4.4-11.3); NEUTROPHILS # (AUTO) 3.6 (2.1-6.9); NEUTROPHILS % 58.1 % (38.7-80.0); PLATELET COUNT 214 x10e3/uL (140-360); RED BLOOD COUNT 4.25 x10e6/uL (3.6-5.1); RED CELL DISTRIBUTION WIDTH 13.2 % (11.7-14.4)
[2018-05-25 15:05] LABS: ALANINE AMINOTRANSFERASE 12 IU/L (0-55); ALBUMIN 3.7 g/dL (3.5-5.0); ALBUMIN/GLOBULIN RATIO 1.2 (0.8-2.0); ALKALINE PHOSPHATASE 90 IU/L (40-150); ANION GAP 10.8 mmol/L (8-16); BLOOD UREA NITROGEN 14 mg/dL (7-26); BUN/CREATININE RATIO 18 (6-25); CARBON DIOXIDE 28 mmol/L (22-29); CHLORIDE 103 mmol/L (98-107); EST GLOMERULAR FILTRATION RATE > 60 ML/MIN (60-); GLUCOSE 93 mg/dL (74-118); POTASSIUM 3.8 mmol/L (3.5-5.1); SODIUM 138 mmol/L (136-145)
[~2018-05-26] VITALS: Ht 165.1 cm; Wt 91.6 kg
[2018-05-26] VITALS (8 sets, daily range): BP systolic 124–147; BP diastolic 66–100
[~2018-05-26] MED LIST changes: +BENZOCAINE 20% SPR 60 ML CAN ONE; +ELIQUIS PO; +FENTANYL CITRATE/PF 100MCG/2 ML INJ ONE; +FLECAINIDE ACE100 MG PO; +HEPARIN SOD/SOD CHLORIDE 2,000 ML ONE; +IOPAMIDOL 370 MG/ML 200 ML INFUS..BTL INJ ONE; +KEFLEX500 MG PO; +LIDOCAINE 1% W/EPINEPHRINE 20 ML VIAL ONE; +LIDOCAINE HCL 1% LOCAL INJ 20 ML VIAL ONE; +LIDOCAINE HCL 2% LOCAL INJ 5 ML SDV VIAL INJ ONE; +MIDAZOLAM HCL 2 MG/2 ML VIAL ONE; +PROPOFOL IV EMULSION 10 MG/ML 20 ML VIAL ONE; +SODIUM CHLORIDE 0.9% 1000ML 1,000 ML ONE; +TYLENOL WITH C1 EACH PO
--- OUTSIDE RECORDS SUMMARY | 2018-05-26 08:53 | XMS REPORT | Continuity of Care Document ---
Author Author [facility] Interface Address Unknown Phone Unavailable Problems Problem [...] tartrate 25 mg tablet Active 03/10/2018 [facility] Amoxicillin 875 MG / Clavulanate 125 MG Oral Tablet amoxicillin 875 mg-potassium clavulanate 125 mg tablet Active [facility] Azithromycin 500 MG Oral Tablet azithromycin 500 mg tablet Active [facility] Fluticasone propionate 0.05 MG/ACTUAT Metered Dose Nasal [place] fluticasone 50 mcg/actuation nasal spray,suspension INHALE 2 SPRAYS INTO EACH NOSTRIL EVERY DAY Active [facility] levocetirizine dihydrochloride 5 MG Oral Tablet levocetirizine 5 mg tablet Take 1 tablet every day by oral route for 30 days. Active [facility] Paroxetine Hydrochloride 10 MG Oral Tablet paroxetine 10 mg tablet Active [facility] fluticasone furoate 0.1 MG/ACTUAT / vilanterol 0.025 MG/ACTUAT Dry Powder Inhaler Breo Ellipta 100 mcg-25 mcg/dose powder for inhalation INHALE 1 PUFF BY MOUTH ONCE A DAY Active [facility] Metoprolol Tartrate 25 MG Oral Tablet metoprolol tartrate 25 mg tablet Active [facility] Cephalexin 500 MG Oral Tablet cephalexin 500 mg tablet Take 1 tablet every 12 hours by oral route as directed for 10 days. Active [facility] 0.5 ML influenza A virus A/[place] (H1N1) antigen 0.03 MG/ML / influenza A virus A/[facility]/[id number] (H3N2) antigen 0.03 MG/ML / influenza B virus B/[place] antigen 0.03 MG/ML / influenza B virus B/[place] [id number]/2012 antigen 0.03 MG/ML Prefilled Syringe [Fluzone Quadrivalent 2260-8544] Fluzone Quad 2017-(PF) 60 mcg(15 mcgx4)/0.5 mL [...] Tablet paroxetine 20 mg tablet Active [facility] Acetaminophen With Codeine (Tylenol With Codeine #3 Tablet) 1 Each Tablet Every 4 Hours as needed for Pain Active [facility] Breo Daily Active [facility] Cephalexin Monohydrate (Keflex) 500 Mg Capsule Three Times A Day Active [facility] Cholecalciferol (Vitamin D3) (Vitamin D3) 1,000 Unit Tablet Daily Active [facility] Cranberry Fruit Concentrate (Cranberry) 450 Mg Capsule Daily Active [facility] Metoprolol Succinate 25 Mg Tab.er.24h Daily Active [facility] Pantoprazole Sodium (Protonix) 40 Mg Tablet. As Needed Active [facility] Paroxetine Hcl 20 Mg Tablet Daily Active [facility] Allergies, Adverse Reactions, Alerts Substance Category Reaction Severity Reaction type Status Date Reported Comments Source Immunizations Immunization Date Given Site Status Last Updated Comments Source influenza, unspecified formulation 11/11/2017 completed [facility] pneumococcal polysaccharide PPV23 11/22/2016 completed [facility] influenza, injectable, quadrivalent 10/22/2016 completed [facility] influenza, seasonal, injectable 12/22/2014 completed [facility] Results Order Name Results Value Reference Range Date Interpretation Comments Source Blood leukocytes automated count (number/volume) 14.89 4.8 - 10.8 03/21/2018 [facility] Blood erythrocytes automated count (number/volume) 4.47 3.6 - 5.1 03/21/2018 [facility] Blood hemoglobin measurement (moles/volume) 12.9 12.0 - 16.0 03/21/2018 [facility] Automated blood hematocrit (volume fraction) 40.2 34.2 - 44.1 03/21/2018 [facility] Automated erythrocyte mean corpuscular volume 89.9 81 - 99 03/21/2018 [facility] Automated erythrocyte mean corpuscular hemoglobin (mass per erythrocyte) 28.9 28 - 32 03/21/2018 [facility] Automated erythrocyte mean corpuscular hemoglobin concentration measurement (mass/volume) 32.1 31 - 35 03/21/2018 [facility] RDW BldCo-Rto 13.2 11.7 - 14.4 03/21/2018 [facility] Automated blood platelet count (count/volume) 227 140 - 360 03/21/2018 [facility] Automated blood segmented neutrophil count as percentage of total leukocytes 90.0 38.7 - 80.0 03/21/2018 [facility] Automated blood lymphocyte count as percentage ot total leukocytes 4.2 18.0 - 39.1 03/21/2018 [facility] Automated blood monocyte count as percentage of total leukocytes 5.2 4.4 - 11.3 03/21/2018 [facility] Automated blood eosinophil count as percentage of total leukocytes 0.0 0.0 - 6.0 03/21/2018 [facility] Automated blood basophil count as percentage of total leukocytes 0.1 0.0 - 1.0 03/21/2018 [facility] IM GRANULOCYTES % 0.5 0.0 - 1.0 03/21/2018 [facility] Automated blood neutrophil count 13.4 2.1 - 6.9 03/21/2018 [facility] Blood lymphocytes count (number/volume) 0.6 1.0 - 3.2 03/21/2018 [facility] Blood monocytes automated count (number/volume) 0.8 0.2 - 0.8 03/21/2018 [facility] Automated blood eosinophil count 0.0 0.0 - 0.4 03/21/2018 [facility] Automated blood basophil count (count/volume) 0.0 0.0 - 0.1 03/21/2018 [facility] Absolute Immature Granulocyte (auto 0.08 0 - 0.1 03/21/2018 [facility] Serum or plasma sodium measurement (moles/volume) 132 136 - 145 03/21/2018 [facility] Serum or plasma potassium measurement (moles/volume) 4.9 3.5 - 5.1 03/21/2018 [facility] Serum or plasma chloride measurement (moles/volume) 97 98 - 107 03/21/2018 [facility] Serum or plasma carbon dioxide, total measurement (moles/volume) 24 22 - 29 03/21/2018 [facility] Serum or plasma anion gap 15.9 8 - 16 03/21/2018 [facility] Serum or plasma urea nitrogen measurement (mass/volume) 16 7 - 26 03/21/2018 [facility] Serum or plasma creatinine measurement (mass/volume) 0.81 0.57 - 1.11 03/21/2018 [facility] Serum or plasma urea nitrogen/creatinine mass ratio 20 6 - 25 03/21/2018 [facility] Estimated glomerular filtration rate (GFR) determination > 60 60 03/21/2018 [facility] Glucose measurement 116 74 - 118 03/21/2018 [facility] Serum or plasma calcium measurement (mass/volume) 9.3 8.4 - 10.2 03/21/2018 [facility] RESULT negative 03/10/2018 [facility] SWAB LOCATION Left [...] Date Status Source [place] - [facility] - [id number] Ortiz, PROGRAM OFFICER: [address] [place] [address], Ph. [phone] [id number] Gin Ortiz 11/15/2015 [facility] [place] [facility] - [id number] Lb Carola, [facility]-C: [address] [place] [address], Ph. [id number] Lb Carola 03/01/2017 [facility] Registered [facility] [id number] ANJALI SMITH MD 02/18/2018 [facility] [place] - [facility] - [id number] Trista Lakeroy, PROGRAM OFFICER-C: [address] [place] [address], Ph. [id number] Trista Augustin 03/10/2018 [facility] Discharged Inpatient (obs) [id number] AJ EDWARDS MD 03/20/2018 03/22/2018 [facility] Procedures Procedure Code Date Perfomer Comments Source Transanal resection of lesion [id number] 03/20/2018 [facility] X-ray of chest, two views [id number] 03/11/2018 [facility] EGD BIOPSY SINGLE/MULTIPLE [id number] 02/18/2018 [facility] COLONOSCOPY W/LESION REMOVAL [id number] 02/18/2018 [facility] COLONOSCOPY W/ABLATION [id number] 02/18/2018 [facility] Hysterectomy [facility]
--- NOTE | 2018-05-26 09:30 | NUR ---
Received pt in farm labor contractor #20 Identifier x 2 Prepped for LHC,Director Of Design and BERNARD Npo since 7pm yesterday.Iv started left Ac #20g x1 stick, 1000ns at bedside with dial a flow. No s/s infiltration at site. Denies c/o family at bedside. Bed in low position side rails up call light at bedside. Report hand off to Mirian LANGLEY. abdon/rn
--- NOTE | 2018-05-26 11:30 | NUR ---
1130 Received pt to medical laboratory technical officer recovery #[id number] s/p BERNARD/LHC and pacer recorder. Received hand off from Mirian Horowitz Sternal durabond dressing in place w/o bleeding family has teaching of loop reocrder per Mirian HOROWITZ LHC no fix via RT. TR band approach Dr Roman gutiérrez for TR band titraion at 1230pm may eat at 1330pm. at bedside explained dc plans with copies of POC with No bleeding at TR band site. Radial pulse strong. wrist splint in place. Back to baseline orientation respiration regular 98% sat on room air. Absomen soft and non tender denies necessity to defecate or urinate Left iv infusing at 100cchr no s/s infiltration. Bilateral femoral pulses present x4. PD/DP. Denies CP,SOB bed in low position ,call light at bedside Side rail up family remain at bedside. abdon/rn
--- NOTE | 2018-05-26 13:30 | NUR ---
1330 dc home vs stable and Ekg. Iv removed site w/o s/s infiltration Coban dressing in place. TR band completion of titration. Rt Tr band site with adequate pulse and sterile 2x2 with [address] in place and arm splint. Loop recorder teaching completed by KORIN Vela and synced with home care device is was operable w/o problems. Pt given home trouble shoot instructions and informed to call MD Dr Monroy if any unforeseen issues arise. Pt stable no co CP or SOB pt aware of f/o care and has copies of dc papers and meds. Discharged home per w/c with [facility] escort to car. abdon/rn
--- NOTE | 2018-05-26 17:21 | Operative Report ---
DATE OF PROCEDURE: 05/26/2018 SURGEON: Vj Monroy MD INDICATION: 1. Coronary artery disease. 2. Atrial fibrillation. PROCEDURES PERFORMED: 1. Left heart catheterization, selective coronary angiography, left ventriculography. 2. Deployment of right wrist TR band. 3. Insertion of cardiac monitoring loop recorder. COMPLICATION: None. BLOOD LOSS: Minimal. RECOMMENDATIONS: Remote monitoring. DESCRIPTION OF PROCEDURE: Access was obtained in the right radial artery using ultrasound guidance. A 5-Slovenian sheath was placed. Diagnostic coronary angiogram revealed no angiographic coronary artery disease. Excellent flow in all vessels. No critical stenosis or occlusions. LV ejection fraction 60%. LV end-diastolic pressure of 8. No gradient across the aortic valve on pullback. Right wrist TR band was applied. The patient discharged home same day. Prior to this procedure, the patient received an insertable loop recorder. Left anterior chest was anesthetized using subcutaneous lidocaine. A Simphatictronic LINQ was inserted without complication. Skin approximated using Dermabond. No complications. Vj Monroy MD KSB/MODL /[id number]
== END | disposition home or self-care (01) ==
LOC: CATH LAB 08:50 → EDSTATUS 12:30
PROVIDERS: ATTEND Internal Medicine Interventional Cardiology
DX: I25.119 Atherosclerotic heart disease of native coronary artery with unspecified angina pectoris (principal); I48.91 Unspecified atrial fibrillation; I10 Essential (primary) hypertension; I34.0 Nonrheumatic mitral (valve) insufficiency; Z01.812 Encounter for preprocedural laboratory examination; Z79.02 Long term (current) use of antithrombotics/antiplatelets
CPT/HCPCS: 33285; 36415; 80053; 85025; 93312; 93320; 93325; 93458; C1764; C1769; C1887; J2001 ×2; J2250; J2704; J7030; Q9967

== ENCOUNTER → 2019-02-15 | Day surgery (SDC) | payer OTHER ==
[2019-02-08 09:10] LABS: BASOPHILS # (AUTO) 0.1 (0.0-0.1); EOSINOPHILS # (AUTO) 0.3 (0.0-0.4); EOSINOPHILS % 4.5 % (0.0-6.0); HEMOGLOBIN 13.3 g/dL (12.0-16.0); LYMPHOCYTES # (AUTO) 1.9 (1.0-3.2); LYMPHOCYTES % 31.6 % (18.0-39.1); MEAN CORPUSCULAR HEMOGLOBIN 29.1 pg (28-32); MEAN CORPUSCULAR HGB CONC 32.4 g/dL (31-35); MEAN CORPUSCULAR VOLUME 89.7 fL (81-99); MONOCYTES # (AUTO) 0.6 (0.2-0.8); MONOCYTES % 9.5 % (4.4-11.3); NEUTROPHILS # (AUTO) 3.2 (2.1-6.9); NEUTROPHILS % 53.2 % (38.7-80.0); PLATELET COUNT 222 x10e3/uL (140-360); RED BLOOD COUNT 4.57 x10e6/uL (3.6-5.1)
[~2019-02-15] MED LIST changes: +ASPIR 8181 MG PO; -BENZOCAINE 20% SPR 60 ML CAN ONE; +CALCIUM PO; +CYMBALTA30 MG PO; +EPHEDRINE SULFATE INJ 50 MG/10 ML SYR ONE; +GLUCAGON FOR INJ 1 MG VIAL ONE; -HEPARIN SOD/SOD CHLORIDE 2,000 ML ONE; +HYOSCYAMINE 0.125 MG TAB ONE; -IOPAMIDOL 370 MG/ML 200 ML INFUS..BTL INJ ONE; -LIDOCAINE 1% W/EPINEPHRINE 20 ML VIAL ONE; -LIDOCAINE HCL 1% LOCAL INJ 20 ML VIAL ONE; -LIDOCAINE HCL 2% LOCAL INJ 5 ML SDV VIAL INJ ONE; -PROPOFOL IV EMULSION 10 MG/ML 20 ML VIAL ONE; +PROPOFOL IV EMULSION 10 MG/ML 50 ML VIAL ONE; -SODIUM CHLORIDE 0.9% 1000ML 1,000 ML ONE; +TUMERIC PO; +VITAMIN B122500 MCG PO
[2019-02-15 13:31] VITALS: BP 126/68
--- NOTE | 2019-02-15 19:28 | Operative Report ---
DATE OF PROCEDURE: 02/15/2019 SURGEON: Javi Pettit MD PROCEDURES: EGD with biopsies and colonoscopy with polypectomy. INDICATIONS FOR EGD: History of gastric ulcer. INDICATIONS FOR COLONOSCOPY: Surveillance colonoscopy, history of rectal mass, personal history of colon polyps. MEDICATIONS: The patient was done under MAC, please see anesthesiologist's note. PROCEDURE IN DETAIL: With the patient in left lateral decubitus position, a flexible fiberoptic Olympus gastroscope was introduced into the esophagus under direct visualization without any difficulty. A minute nodule was noted just below the upper esophageal sphincter and that was biopsied. There was some patchy erythema noted in distal esophagus. A minute tongue of velvety red mucosa was noted to extend proximally from the GE junction, it was biopsied to rule out Patton's. The scope was then advanced with ease into the stomach and mucosa overlying the antrum and the body revealed some patchy erythema, [id number] edema, and biopsies were obtained and sent to stain for H. pylori. Healed gastric ulcer antrum, site, biopsied. The pylorus was of normal contour and shape was intubated with ease and the scope was advanced all the way to the second portion of the duodenum. The scope was then withdrawn slowly and mucosa overlying the proximal second portion and the duodenal bulb appeared to be within normal limits. The scope was then withdrawn back into the stomach and retroflexed, mucosa overlying the fundus and cardia appeared to be within normal limits. The scope was then straightened out, it was subsequently withdrawn. The patient tolerated the procedure well. IMPRESSION: 1. Minute nodule, just below upper esophageal sphincter, biopsied. 2. Distal esophagitis, mild. 3. Rule out Patton's. 4. Gastritis, biopsied, biopsies sent to stain for H. pylori. 5. Previous gastric ulcer site, antrum, biopsied. PLAN: 1. Follow up histology. 2. Continue Protonix 40 mg one p.o. q.a.m. a.c. PROCEDURE IN DETAIL: The patient was then turned around and after adequate lubrication of the anal canal, flexible fiberoptic Olympus colonoscope was inserted into the rectum with ease and advanced all the way to the cecum. The scope was then withdrawn slowly, mucosa overlying the cecum and ascending colon, appeared to be within normal limits. Three polyps were hot biopsied. One polyp was snared, was hot snared and polypectomy site was hemoclipped in the transverse colon. The descending and sigmoid other than for some diverticular disease appeared to be within normal limits. Two minute polyps just proximal to the rectal mass resection site were hot biopsied. The scope was then retroflexed into the distal rectum and small internal hemorrhoids were noted, none of which was actively bleeding. The scope was then straightened out, it was subsequently withdrawn. The patient tolerated the procedure well. IMPRESSION: 1. Transverse colon polyps x4, one snared and site hemoclipped and three hot biopsied. 2. Diverticulosis. 3. Minute polyps just above the rectal mass resection site, removed per hot biopsy forceps. 4. Internal hemorrhoids, none actively bleeding. PLAN: 1. Follow up histology. 2. Initiate high-fiber, low-fat diet. 3. Initiate high-fiber supplement. 4. The patient might benefit from a followup colonoscopy in 2 to 3 years. Javi Pettit MD [facility] [place] /[id number] cc: Dianna Love MD
== END | disposition home or self-care (01) ==
LOC: OR 09:08
PROVIDERS: ATTEND Internal Medicine Gastroenterology
DX: K62.89 Other specified diseases of anus and rectum (principal); Z86.010 Personal history of colon polyps; K20.9 Esophagitis, unspecified; R11.0 Nausea; K29.70 Gastritis, unspecified, without bleeding; K25.9 Gastric ulcer, unspecified as acute or chronic, without hemorrhage or perforation; K21.9 Gastro-esophageal reflux disease without esophagitis; Z01.810 Encounter for preprocedural cardiovascular examination; Z01.812 Encounter for preprocedural laboratory examination; D12.3 Benign neoplasm of transverse colon; K22.8 Other specified diseases of esophagus; K57.30 Diverticulosis of large intestine without perforation or abscess without bleeding; K64.8 Other hemorrhoids; R10.13 Epigastric pain; K63.5 Polyp of colon; R03.0 Elevated blood-pressure reading, without diagnosis of hypertension; Z68.31 Body mass index [BMI] 31.0-31.9, adult
CPT/HCPCS: 36415; 43239; 45384; 45385; 85025; 93005; J1610; J2250; J2704; J3010

== ENCOUNTER → 2020-11-15 | Day surgery (SDC) | payer BC ==
[2020-11-13 13:53] LABS: BASOPHILS # (AUTO) 0.1 (0.0-0.1); BASOPHILS % 0.8 % (0.0-1.0); EOSINOPHILS # (AUTO) 0.2 (0.0-0.4); EOSINOPHILS % 2.8 % (0.0-6.0); HEMATOCRIT 40.1 % (34.2-44.1); HEMOGLOBIN 12.5 g/dL (12.0-16.0); LYMPHOCYTES % 32.2 % (18.0-39.1); MEAN CORPUSCULAR HEMOGLOBIN 28.7 pg (28-32); MEAN CORPUSCULAR HGB CONC 31.2 g/dL (31-35); MEAN CORPUSCULAR VOLUME 92.2 fL (81-99); MONOCYTES # (AUTO) 0.6 (0.2-0.8); MONOCYTES % 8.8 % (4.4-11.3); NEUTROPHILS # (AUTO) 3.5 (2.1-6.9); NEUTROPHILS % 55.1 % (38.7-80.0); PLATELET COUNT 213 x10e3/uL (140-360); RED BLOOD COUNT 4.35 x10e6/uL (3.6-5.1); RED CELL DISTRIBUTION WIDTH 13.3 % (11.7-14.4)
[~2020-11-15] MED LIST changes: -EPHEDRINE SULFATE INJ 50 MG/10 ML SYR ONE; -FENTANYL CITRATE/PF 100MCG/2 ML INJ ONE; -GLUCAGON FOR INJ 1 MG VIAL ONE; -HYOSCYAMINE 0.125 MG TAB ONE; +LOSARTAN POTASS25 MG PO; -MIDAZOLAM HCL 2 MG/2 ML VIAL ONE; -PROPOFOL IV EMULSION 10 MG/ML 50 ML VIAL ONE
[2020-11-15 12:25] VITALS: BP 123/80
== END | disposition home or self-care (01) ==
LOC: OR 08:56
PROVIDERS: ATTEND Internal Medicine Gastroenterology
DX: K29.00 Acute gastritis without bleeding (principal); K20.90 Esophagitis, unspecified without bleeding; K44.9 Diaphragmatic hernia without obstruction or gangrene; K57.30 Diverticulosis of large intestine without perforation or abscess without bleeding; Z86.010 Personal history of colon polyps; C80.1 Malignant (primary) neoplasm, unspecified; Z87.11 Personal history of peptic ulcer disease; R12 Heartburn; I10 Essential (primary) hypertension; Z68.34 Body mass index [BMI] 34.0-34.9, adult; K62.89 Other specified diseases of anus and rectum; E78.00 Pure hypercholesterolemia, unspecified; I48.91 Unspecified atrial fibrillation; Z01.810 Encounter for preprocedural cardiovascular examination; Z01.812 Encounter for preprocedural laboratory examination; Z20.822 Contact with and (suspected) exposure to COVID-19
CPT/HCPCS: 36415; 43239; 45378; 85025; 93005; U0002

== ENCOUNTER → 2024-07-03 | Day surgery (SDC) | payer BC, MEDICARE ==
[2024-06-23 08:30] LABS: BASOPHILS % 0.6 % (0.0-1.0); EOSINOPHILS # (AUTO) 0.2 (0.0-0.4); EOSINOPHILS % 3.3 % (0.0-6.0); HEMATOCRIT 37.6 % (34.2-44.1); HEMOGLOBIN 12.5 g/dL (12.0-16.0); LYMPHOCYTES # (AUTO) 1.8 (1.0-3.2); LYMPHOCYTES % 27.4 % (18.0-39.1); MEAN CORPUSCULAR HGB CONC 33.2 g/dL (31-35); MEAN CORPUSCULAR VOLUME 90.4 fL (81-99); MONOCYTES # (AUTO) 0.6 (0.2-0.8); MONOCYTES % 9.3 % (4.4-11.3); NEUTROPHILS # (AUTO) 3.9 (2.1-6.9); NEUTROPHILS % 59.1 % (38.7-80.0); PLATELET COUNT 219 x10e3/uL (140-360); RED BLOOD COUNT 4.16 x10e6/uL (3.6-5.1); RED CELL DISTRIBUTION WIDTH 13.3 % (11.7-14.4); WHITE BLOOD COUNT 6.58 x10e3/uL (4.8-10.8)
[~2024-07-03] MED LIST changes: +ALENDRONATE SOD70 MG PO; +ATORVASTATIN CA10 MG PO; +FENTANYL CITRATE/PF 100MCG/2 ML INJ ONE; +GLUCAGON FOR INJ 1 MG VIAL ONE; +HYOSCYAMINE SULFATE 0.5 MG/ML INJ ONE; +LIDOCAINE HCL 2% LOCAL INJ 5 ML SDV VIAL INJ ONE; +OLMESARTAN-HCT1 EAC2 PO; +ONDANSETRON HCL INJ 2MG/ML 2ML 2 MG/ML VIAL ONE; +PROPOFOL IV EMULSION 50 ML IV ONE
[2024-07-03] MEDS: LACTATED RINGER'S 1,000 ML ONE (07:25)
[2024-07-03 10:35] VITALS: BP 124/71; PULSE 92; RESP 16; TEMP 98.4; O2SAT 96
== END | disposition home or self-care (01) ==
LOC: OR 06:56
PROVIDERS: ATTEND Internal Medicine Gastroenterology
DX: K29.70 Gastritis, unspecified, without bleeding (principal); D12.8 Benign neoplasm of rectum; K26.9 Duodenal ulcer, unspecified as acute or chronic, without hemorrhage or perforation; K31.89 Other diseases of stomach and duodenum; K20.90 Esophagitis, unspecified without bleeding; K21.9 Gastro-esophageal reflux disease without esophagitis; K44.9 Diaphragmatic hernia without obstruction or gangrene; K57.30 Diverticulosis of large intestine without perforation or abscess without bleeding; K59.00 Constipation, unspecified; I48.91 Unspecified atrial fibrillation; I10 Essential (primary) hypertension; M81.0 Age-related osteoporosis without current pathological fracture; F41.9 Anxiety disorder, unspecified; Z71.3 Dietary counseling and surveillance; Z01.810 Encounter for preprocedural cardiovascular examination; Z01.812 Encounter for preprocedural laboratory examination; Z79.82 Long term (current) use of aspirin; Z79.899 Other long term (current) drug therapy; Z68.33 Body mass index [BMI] 33.0-33.9, adult
CPT/HCPCS: 36415; 43239; 45378; 85025; 93005; J1610; J1980; J2003; J2405; J2470; J2704; J3010; J7121